=== PATIENT | female | born 1995 | race Caucasian/White ===

== ENCOUNTER 2018-01-23 17:29 | Emergency (ER) | payer OTHER ==
[~2018-01-23 17:29] MED LIST: APIX5TAB PO; ETON1VAG7 VG; OXYC-865 PO; RIVA15TA PO; RIVA20TA PO; TRAM-420 PO; [UNRECOGNIZED DRUG - CODE] PO
[2018-01-23 17:34] VITALS: BP 127/87
--- NOTE | 2018-01-23 18:13 | RADIOLOGY IMAGING REPORT ---
FACILITY: [facility] - [place] PATIENT NAME: Jo Ann Perkins : 1995 MR: [id number] V: [id number] EXAM DATE: ORDERING PHYSICIAN: GUSTAVO PEDRAZA TECHNOLOGIST: Location: [facility] - [place] Patient: Jo Ann Perkins : 1995 Visit/Account:[id number] Date of Sevice: 01/23/2018 WRIST RIGHT MIN 3 VIEW Indication: Right wrist pain. Fall yesterday. Comparison: None Available Findings: 3 views of the right wrist. No fracture or dislocation. No bony lesions, appreciable degenerative joanne nges or periosteal abnormality. Soft tissues are unremarkable. IMPRESSION: 1.No acute osseous abnormality right wrist Report Dictated By: Klaus Riggins at 01/23/2018 6:08 PM Report E-Signed By: Klaus Riggins at 01/23/2018 6:10 PM WSN:[id number]
--- NOTE | 2018-01-23 18:25 | ER Report ---
History and Physical Time Seen By MD: 17:35 Hx. of Stated Complaint: FELL ON RIGHT WRIST ABOUT 3PM LAST NIGHT HPI/ROS CHIEF COMPLAINT: Right wrist injury HISTORY OF PRESENT ILLNESS: Patient is a 22-year-old female presents to ED with complaint of a right wrist injury that occurred yesterday. She states that she actually banging the son to a shelf. She has been having some pain in her wrist ever since and has noted some swelling. She has not noticed any bruising. She has noticed some swelling into her hand. She does have a ring on her left 4th finger and was trying to remove this because her finger was becoming swollen. She is not taken any medication for her pain. She has been applying some ice. REVIEW OF SYSTEMS: Constitutional: No fever, no chills. Cardiovascular: No chest pain, no palpitations. Respiratory: No cough, no shortness of breath. Musculoskeletal: See history of present illness. Skin: No rashes. Neurological: No headache. Allergies: Coded Allergies: No Known Drug Allergies (Unverified , 01/23/18) Home Meds Discontinued Reported Medications Isoniazid (ISONIAZID) 300 Mg Tablet, 300 MG PO QDAY 02/28/17 Etonogestrel/Ethinyl Estradiol (NUVARING VAGINAL RING) 1 Each Vag.ring, 1 EACH VG, VAG.RING 02/28/17 Discontinued Scripts Apixaban (ELIQUIS) 5 Mg Tablet, 5 MG PO BID for 83 Days, #166 TAB 0 Refills Start on 03/07/17 and take 5mg; twice per day until complete Prov:SADA PINEDA MD 04/08/17 Apixaban (ELIQUIS) 5 Mg Tablet, 10 MG PO BID for 7 Days, #27 TAB 0 Refills Take your first dose (two 5mg tablets) the evening of 02/28/17; then take two, 5mg tablets twice per day until March 07 Prov:MOLLY CALVO MD 02/28/17 Reviewed Nurses Notes: Yes Old Medical Records Reviewed: Yes Hx Smoking: No Smoking Status: Never Smoker Hx Substance Use Disorder: No Hx Alcohol Use: No Constitutional Vital Sign - Last 24 Hours 01/23/18 17:34 Temp 98.2 Pulse 95 Resp 14 B/P (MAP) 127/87 Pulse Ox 96 O2 Delivery Room Air Physical Exam General Appearance: The patient is alert, has no immediate need for airway protection and no current signs of toxicity. She appears to be in no acute distress. Respiratory: Chest is non tender, lungs are clear to auscultation. Cardiac: regular rate and rhythm Musculoskeletal: Neck: Neck is supple and non tender. There is pain with palpation of the right wrist and the ulnar aspect. There is some slight swelling appreciated in this area. No ecchymosis identified. Radial pulses 2+ with normal capillary refill. There is some swelling into her right 4th and 5th digits as well but this is quite mild. Skin: No rashes or lesions. DIFFERENTIAL DIAGNOSIS: After history and physical exam differential diagnosis was considered for right wrist injury including sprain, fracture contusion. Medical Decision Making EKG/Imaging Imaging Right Wrist Xrays: IMPRESSION: 1.No acute osseous abnormality right wrist Report Dictated By: Klaus Riggins at 01/23/2018 6:08 PM Report E-Signed By: Klaus Riggins at 01/23/2018 6:10 PM ED Course/Re-evaluation ED Course Will obtain right wrist x-rays. 01/23/2018 6:23:31 pm - right wrist x-rays with the patient. She has no acute fracture. She likely has a contusion that is causing some swelling. Discussed cutting her ring since she was unable to remove it herself. She does not want to do this and states that she does have a ring cutter at home and will remove this if necessary. Decision to Disposition Date: Jan 23, 2018 Decision to Disposition Time: 18:24 Depart Departure Latest Vital Signs Vital Signs Date Time Temp Pulse Resp B/P (MAP) Pulse Ox O2 Delivery O2 Flow Rate FiO2 01/23/18 17:34 98.2 95 14 127/87 96 Room Air Impression: Primary Impression: Contusion of right wrist Condition: Improved Disposition: HOME OR SELF-CARE Patient Instructions: Contusion in Adults (ED), Wrist Sprain (ED) Additional Instructions: Rest, ice, elevate. May take Tylenol or ibuprofen for pain relief. If having any worsening or concerning symptoms may return to the emergency department. Follow-up with primary care provider in 3-4 days. Problem Qualifiers Primary Impression: Contusion of right wrist Encounter type: initial encounter Qualified Codes: S60.211A - Contusion of right wrist, initial encounter GUSTAVO PEDRAZA PA-C Jan 23, 2018 18:25
[2018-01-23] MEDS ORDERED: GI COCKTAIL 60 ML BTL PO PRN (18:40)
== END 2018-01-23 18:30 | disposition home or self-care (01) ==
LOC: ER 17:38
DX: S60.211A Contusion of right wrist, initial encounter (principal)
CPT/HCPCS: 99283